=== PATIENT | male | born 1970 | race Two or more races ===

== ENCOUNTER 2021-11-28 20:35 | Inpatient (IN) | payer OTHER ==
[~2021-11-28 20:35] MED LIST: AMMONIUM LACTATE 12% LOTION 225 GM BOTTLE TP PRN; LOPERAMIDE HCL 2 MG CAPSULE PO PRN; MAG HYDROX/AL HYDROX/SIMETH 30 ML UNIT-DOSE CUP PO PRN; MAGNESIUM CITRATE 300 ML BOTTLE PO PRN; MAGNESIUM HYDROX 2400MG/30ML ORAL SUSPENSION 30 ML CUP PO PRN; MENTHOL/PHENOL 1 EACH UD MM PRN; P-EPHED 60MG/TRIPROLIDI 2.5MG TABLET PO PRN; SPIRONOLACTONE 25 MG TABLET PO ONE; guaiFENesin 200 MG/10 ML 10 ML UNIT-DOSE CUPS PO PRN
[2021-11-28] MEDS: THIAMINE HCL 100 MG TABLET (FP) PO SCH (21:59)
[2021-11-28] MEDS: IBUPROFEN 400 MG TABLET (FP) PO PRN (22:10)
[2021-11-28 22:16] VITALS: BMI 22.8
[2021-11-28] MEDS: LIDOCAINE PATCH REMOVAL MC SCH (23:14)
[2021-11-29] MEDS: LIDOCAINE 5% TOPICAL PATCH TP SCH (09:53)
[2021-11-29] MEDS: PRENATAL VITAMINS W/ FOLIC ACID TABLET (FP) PO SCH (09:53)
[2021-11-29] MEDS: IBUPROFEN 400 MG TABLET (FP) PO PRN (11:09)
[2021-11-29] MEDS: FERROUS SO4 325 MG TABLET (FP) PO SCH (11:11)
[2021-11-29] MEDS: FAMOTIDINE 20 MG TABLET PO SCH ×2 (11:11→21:16)
[2021-11-29] MEDS: FOLIC ACID 1 MG TABLET (FP) PO SCH (11:12)
[2021-11-29] MEDS: THIAMINE HCL 100 MG TABLET (FP) PO SCH (21:16)
[2021-11-29] MEDS: MELATONIN 5 MG TABLETS PO PRN (21:16)
[2021-11-29] MEDS: LIDOCAINE PATCH REMOVAL MC SCH (21:17)
[2021-11-30] MEDS: FOLIC ACID 1 MG TABLET (FP) PO SCH (10:18)
[2021-11-30] MEDS: PRENATAL VITAMINS W/ FOLIC ACID TABLET (FP) PO SCH (10:18)
[2021-11-30] MEDS: FERROUS SO4 325 MG TABLET (FP) PO SCH (10:18)
[2021-11-30] MEDS: FAMOTIDINE 20 MG TABLET PO SCH ×2 (10:18→21:12)
[2021-11-30] MEDS: LIDOCAINE 5% TOPICAL PATCH TP SCH (10:18)
[2021-11-30] MEDS: IBUPROFEN 400 MG TABLET (FP) PO PRN ×2 (10:19→21:12)
[2021-11-30] MEDS: THIAMINE HCL 100 MG TABLET (FP) PO SCH (21:12)
[2021-11-30] MEDS: MELATONIN 5 MG TABLETS PO PRN (21:12)
[2021-11-30] MEDS: LIDOCAINE PATCH REMOVAL MC SCH (21:13)
[2021-12-01] MEDS: PRENATAL VITAMINS W/ FOLIC ACID TABLET (FP) PO SCH (10:03)
[2021-12-01] MEDS: FOLIC ACID 1 MG TABLET (FP) PO SCH (10:03)
[2021-12-01] MEDS: FAMOTIDINE 20 MG TABLET PO SCH ×2 (10:03→21:08)
[2021-12-01] MEDS: FERROUS SO4 325 MG TABLET (FP) PO SCH (10:03)
[2021-12-01] MEDS: IBUPROFEN 400 MG TABLET (FP) PO PRN ×2 (10:04→21:08)
[2021-12-01] MEDS: LIDOCAINE 5% TOPICAL PATCH TP SCH (10:05)
[2021-12-01] MEDS: LIDOCAINE PATCH REMOVAL MC SCH (21:06)
[2021-12-01] MEDS: MELATONIN 5 MG TABLETS PO PRN (21:08)
[2021-12-01] MEDS: THIAMINE HCL 100 MG TABLET (FP) PO SCH (21:08)
[2021-12-02] MEDS: FERROUS SO4 325 MG TABLET (FP) PO SCH (10:35)
[2021-12-02] MEDS: FOLIC ACID 1 MG TABLET (FP) PO SCH (10:35)
[2021-12-02] MEDS: LIDOCAINE 5% TOPICAL PATCH TP SCH (10:35)
[2021-12-02] MEDS: FAMOTIDINE 20 MG TABLET PO SCH ×2 (10:35→21:30)
[2021-12-02] MEDS: PRENATAL VITAMINS W/ FOLIC ACID TABLET (FP) PO SCH (10:35)
[2021-12-02] MEDS: IBUPROFEN 400 MG TABLET (FP) PO PRN ×2 (10:36→21:31)
[2021-12-02] MEDS: LIDOCAINE PATCH REMOVAL MC SCH (21:29)
[2021-12-02] MEDS: THIAMINE HCL 100 MG TABLET (FP) PO SCH (21:30)
[2021-12-02] MEDS: MELATONIN 5 MG TABLETS PO PRN (21:33)
[2021-12-03] MEDS: FAMOTIDINE 20 MG TABLET PO SCH ×2 (10:15→21:37)
[2021-12-03] MEDS: FOLIC ACID 1 MG TABLET (FP) PO SCH (10:15)
[2021-12-03] MEDS: FERROUS SO4 325 MG TABLET (FP) PO SCH (10:15)
[2021-12-03] MEDS: LIDOCAINE 5% TOPICAL PATCH TP SCH (10:15)
[2021-12-03] MEDS: PRENATAL VITAMINS W/ FOLIC ACID TABLET (FP) PO SCH (10:15)
[2021-12-03] MEDS: IBUPROFEN 400 MG TABLET (FP) PO PRN ×2 (10:16→21:37)
[2021-12-03] MEDS: LIDOCAINE PATCH REMOVAL MC SCH (21:36)
[2021-12-03] MEDS: THIAMINE HCL 100 MG TABLET (FP) PO SCH (21:37)
[2021-12-04] MEDS: FAMOTIDINE 20 MG TABLET PO SCH ×2 (10:03→21:36)
[2021-12-04] MEDS: FERROUS SO4 325 MG TABLET (FP) PO SCH (10:03)
[2021-12-04] MEDS: PRENATAL VITAMINS W/ FOLIC ACID TABLET (FP) PO SCH (10:03)
[2021-12-04] MEDS: FOLIC ACID 1 MG TABLET (FP) PO SCH (10:03)
[2021-12-04] MEDS: LIDOCAINE 5% TOPICAL PATCH TP SCH (10:04)
[2021-12-04] MEDS: IBUPROFEN 400 MG TABLET (FP) PO PRN ×2 (10:05→21:36)
[2021-12-04] MEDS: LIDOCAINE PATCH REMOVAL MC SCH (21:36)
[2021-12-04] MEDS: MELATONIN 5 MG TABLETS PO PRN (21:36)
[2021-12-04] MEDS: THIAMINE HCL 100 MG TABLET (FP) PO SCH (21:36)
[2021-12-05] MEDS: PRENATAL VITAMINS W/ FOLIC ACID TABLET (FP) PO SCH (10:01)
[2021-12-05] MEDS: FAMOTIDINE 20 MG TABLET PO SCH ×2 (10:01→21:52)
[2021-12-05] MEDS: FERROUS SO4 325 MG TABLET (FP) PO SCH (10:02)
[2021-12-05] MEDS: LIDOCAINE 5% TOPICAL PATCH TP SCH (10:02)
[2021-12-05] MEDS: FOLIC ACID 1 MG TABLET (FP) PO SCH (10:02)
[2021-12-05] MEDS: IBUPROFEN 400 MG TABLET (FP) PO PRN ×2 (10:06→21:48)
[2021-12-05] MEDS: LIDOCAINE PATCH REMOVAL MC SCH (21:45)
[2021-12-05] MEDS: THIAMINE HCL 100 MG TABLET (FP) PO SCH (21:49)
[2021-12-05] MEDS: MELATONIN 5 MG TABLETS PO PRN (21:52)
[2021-12-06] MEDS: FERROUS SO4 325 MG TABLET (FP) PO SCH (10:49)
[2021-12-06] MEDS: FOLIC ACID 1 MG TABLET (FP) PO SCH (10:49)
[2021-12-06] MEDS: FAMOTIDINE 20 MG TABLET PO SCH ×2 (10:49→21:29)
[2021-12-06] MEDS: PRENATAL VITAMINS W/ FOLIC ACID TABLET (FP) PO SCH (10:49)
[2021-12-06] MEDS: IBUPROFEN 400 MG TABLET (FP) PO PRN ×2 (10:50→21:29)
[2021-12-06] MEDS: LIDOCAINE 5% TOPICAL PATCH TP SCH (10:51)
[2021-12-06] MEDS: LIDOCAINE PATCH REMOVAL MC SCH (21:30)
[2021-12-06] MEDS: MELATONIN 5 MG TABLETS PO PRN (21:30)
[2021-12-06] MEDS: THIAMINE HCL 100 MG TABLET (FP) PO SCH (21:30)
[2021-12-07] MEDS: FAMOTIDINE 20 MG TABLET PO SCH ×2 (10:36→21:20)
[2021-12-07] MEDS: FOLIC ACID 1 MG TABLET (FP) PO SCH (10:36)
[2021-12-07] MEDS: FERROUS SO4 325 MG TABLET (FP) PO SCH (10:36)
[2021-12-07] MEDS: IBUPROFEN 400 MG TABLET (FP) PO PRN ×2 (10:37→21:20)
[2021-12-07] MEDS: LIDOCAINE 5% TOPICAL PATCH TP SCH (10:37)
[2021-12-07] MEDS: PRENATAL VITAMINS W/ FOLIC ACID TABLET (FP) PO SCH (10:39)
[2021-12-07] MEDS: MELATONIN 5 MG TABLETS PO PRN (21:20)
[2021-12-07] MEDS: THIAMINE HCL 100 MG TABLET (FP) PO SCH (21:20)
[2021-12-07] MEDS: LIDOCAINE PATCH REMOVAL MC SCH (21:22)
[2021-12-08] MEDS: PRENATAL VITAMINS W/ FOLIC ACID TABLET (FP) PO SCH (11:11)
[2021-12-08] MEDS: FERROUS SO4 325 MG TABLET (FP) PO SCH (11:11)
[2021-12-08] MEDS: FAMOTIDINE 20 MG TABLET PO SCH ×2 (11:11→22:04)
[2021-12-08] MEDS: FOLIC ACID 1 MG TABLET (FP) PO SCH (11:12)
[2021-12-08] MEDS: LIDOCAINE 5% TOPICAL PATCH TP SCH (11:12)
[2021-12-08] MEDS: IBUPROFEN 400 MG TABLET (FP) PO PRN ×2 (11:14→22:05)
[2021-12-08] MEDS: LIDOCAINE PATCH REMOVAL MC SCH (22:04)
[2021-12-08] MEDS: THIAMINE HCL 100 MG TABLET (FP) PO SCH (22:04)
[2021-12-08] MEDS: MELATONIN 5 MG TABLETS PO PRN (22:05)
[2021-12-09] MEDS: LIDOCAINE 5% TOPICAL PATCH TP SCH (10:40)
[2021-12-09] MEDS: IBUPROFEN 400 MG TABLET (FP) PO PRN ×2 (10:41→21:16)
[2021-12-09] MEDS: FERROUS SO4 325 MG TABLET (FP) PO SCH (10:41)
[2021-12-09] MEDS: FAMOTIDINE 20 MG TABLET PO SCH ×2 (10:41→21:14)
[2021-12-09] MEDS: PRENATAL VITAMINS W/ FOLIC ACID TABLET (FP) PO SCH (10:42)
[2021-12-09] MEDS: FOLIC ACID 1 MG TABLET (FP) PO SCH (10:42)
[2021-12-09] MEDS: THIAMINE HCL 100 MG TABLET (FP) PO SCH (21:14)
[2021-12-09] MEDS: LIDOCAINE PATCH REMOVAL MC SCH (21:14)
[2021-12-09] MEDS: MELATONIN 5 MG TABLETS PO PRN (21:15)
[2021-12-10] MEDS: FOLIC ACID 1 MG TABLET (FP) PO SCH (11:03)
[2021-12-10] MEDS: FAMOTIDINE 20 MG TABLET PO SCH ×2 (11:03→21:18)
[2021-12-10] MEDS: LIDOCAINE 5% TOPICAL PATCH TP SCH (11:03)
[2021-12-10] MEDS: FERROUS SO4 325 MG TABLET (FP) PO SCH (11:03)
[2021-12-10] MEDS: PRENATAL VITAMINS W/ FOLIC ACID TABLET (FP) PO SCH (11:04)
[2021-12-10] MEDS: IBUPROFEN 400 MG TABLET (FP) PO PRN ×2 (11:04→21:18)
[2021-12-10] MEDS: LIDOCAINE PATCH REMOVAL MC SCH (21:18)
[2021-12-10] MEDS: THIAMINE HCL 100 MG TABLET (FP) PO SCH (21:19)
[2021-12-10] MEDS: MELATONIN 5 MG TABLETS PO PRN (21:20)
[2021-12-11] MEDS: PRENATAL VITAMINS W/ FOLIC ACID TABLET (FP) PO SCH (10:55)
[2021-12-11] MEDS: FAMOTIDINE 20 MG TABLET PO SCH ×2 (10:55→22:18)
[2021-12-11] MEDS: FERROUS SO4 325 MG TABLET (FP) PO SCH (10:55)
[2021-12-11] MEDS: LIDOCAINE 5% TOPICAL PATCH TP SCH (10:56)
[2021-12-11] MEDS: FOLIC ACID 1 MG TABLET (FP) PO SCH (10:56)
[2021-12-11] MEDS: IBUPROFEN 400 MG TABLET (FP) PO PRN ×2 (10:57→22:18)
[2021-12-11] MEDS: LIDOCAINE PATCH REMOVAL MC SCH (22:17)
[2021-12-11] MEDS: MELATONIN 5 MG TABLETS PO PRN (22:18)
[2021-12-11] MEDS: THIAMINE HCL 100 MG TABLET (FP) PO SCH (22:18)
[2021-12-12] MEDS: FERROUS SO4 325 MG TABLET (FP) PO SCH (10:50)
[2021-12-12] MEDS: LIDOCAINE 5% TOPICAL PATCH TP SCH (10:50)
[2021-12-12] MEDS: PRENATAL VITAMINS W/ FOLIC ACID TABLET (FP) PO SCH (10:50)
[2021-12-12] MEDS: IBUPROFEN 400 MG TABLET (FP) PO PRN ×2 (10:50→21:27)
[2021-12-12] MEDS: FAMOTIDINE 20 MG TABLET PO SCH ×2 (10:50→21:27)
[2021-12-12] MEDS: FOLIC ACID 1 MG TABLET (FP) PO SCH (12:13)
[2021-12-12] MEDS: MELATONIN 5 MG TABLETS PO PRN (21:26)
[2021-12-12] MEDS: THIAMINE HCL 100 MG TABLET (FP) PO SCH (21:26)
[2021-12-12] MEDS: LIDOCAINE PATCH REMOVAL MC SCH (21:27)
[2021-12-13] MEDS: FAMOTIDINE 20 MG TABLET PO SCH ×2 (10:21→21:50)
[2021-12-13] MEDS: FOLIC ACID 1 MG TABLET (FP) PO SCH (10:21)
[2021-12-13] MEDS: IBUPROFEN 400 MG TABLET (FP) PO PRN ×2 (10:21→21:50)
[2021-12-13] MEDS: PRENATAL VITAMINS W/ FOLIC ACID TABLET (FP) PO SCH (10:21)
[2021-12-13] MEDS: FERROUS SO4 325 MG TABLET (FP) PO SCH (10:21)
[2021-12-13] MEDS: LIDOCAINE 5% TOPICAL PATCH TP SCH (10:22)
[2021-12-13] MEDS: LIDOCAINE PATCH REMOVAL MC SCH (21:50)
[2021-12-13] MEDS: THIAMINE HCL 100 MG TABLET (FP) PO SCH (21:50)
[2021-12-14] MEDS: IBUPROFEN 400 MG TABLET (FP) PO PRN ×2 (10:18→21:22)
[2021-12-14] MEDS: FOLIC ACID 1 MG TABLET (FP) PO SCH (10:18)
[2021-12-14] MEDS: PRENATAL VITAMINS W/ FOLIC ACID TABLET (FP) PO SCH (10:18)
[2021-12-14] MEDS: FERROUS SO4 325 MG TABLET (FP) PO SCH (10:18)
[2021-12-14] MEDS: FAMOTIDINE 20 MG TABLET PO SCH ×2 (10:18→21:22)
[2021-12-14] MEDS: LIDOCAINE 5% TOPICAL PATCH TP SCH (10:19)
[2021-12-14] MEDS: THIAMINE HCL 100 MG TABLET (FP) PO SCH (21:22)
[2021-12-14] MEDS: MELATONIN 5 MG TABLETS PO PRN (21:22)
[2021-12-14] MEDS: LIDOCAINE PATCH REMOVAL MC SCH (21:39)
[2021-12-15] MEDS: PRENATAL VITAMINS W/ FOLIC ACID TABLET (FP) PO SCH (09:36)
[2021-12-15] MEDS: FERROUS SO4 325 MG TABLET (FP) PO SCH (09:38)
[2021-12-15] MEDS: FOLIC ACID 1 MG TABLET (FP) PO SCH (09:38)
[2021-12-15] MEDS: FAMOTIDINE 20 MG TABLET PO SCH ×2 (09:38→21:34)
[2021-12-15] MEDS: IBUPROFEN 400 MG TABLET (FP) PO PRN ×2 (09:39→21:34)
[2021-12-15] MEDS: LIDOCAINE 5% TOPICAL PATCH TP SCH (09:40)
[2021-12-15] MEDS: LIDOCAINE PATCH REMOVAL MC SCH (21:33)
[2021-12-15] MEDS: THIAMINE HCL 100 MG TABLET (FP) PO SCH (21:35)
[2021-12-15] MEDS: MELATONIN 5 MG TABLETS PO PRN (21:35)
[2021-12-16 07:20] VITALS: BP 144/91; PULSE 96; TEMP 97.1
[2021-12-16] MEDS: LIDOCAINE 5% TOPICAL PATCH TP SCH (09:59)
[2021-12-16] MEDS: FERROUS SO4 325 MG TABLET (FP) PO SCH (10:00)
[2021-12-16] MEDS: FAMOTIDINE 20 MG TABLET PO SCH (10:00)
[2021-12-16] MEDS: FOLIC ACID 1 MG TABLET (FP) PO SCH (10:00)
[2021-12-16] MEDS: PRENATAL VITAMINS W/ FOLIC ACID TABLET (FP) PO SCH (10:01)
[2021-12-16] MEDS: IBUPROFEN 400 MG TABLET (FP) PO PRN (10:01)
== END 2021-12-16 10:00 | disposition home or self-care (01) | DRG 772 ==
LOC: YASAS 20:35 → Y3W 20:37 → Y5N 12-01 20:21
PROVIDERS: ADMIT Allergy & Immunology; ATTEND Allergy & Immunology
PROC: HZ42ZZZ Group Counseling for Substance Abuse Treatment, Cognitive-Behavioral (ICD-10-PCS; principal; 2021-11-28)
DX: F10.20 Alcohol dependence, uncomplicated (principal); D50.9 Iron deficiency anemia, unspecified; Z87.19 Personal history of other diseases of the digestive system; Z91.81 History of falling
CPT/HCPCS: 82140; C9803; U0003; U0005